=== PATIENT | female | born 2000 | race Caucasian/White ===

== ENCOUNTER 2025-03-28 00:28 | Emergency (ER) | payer SELFPAY ==
[~2025-03-28] VITALS: Ht 152.4 cm; Wt 61.0 kg
[2025-03-28 00:37] VITALS: TEMP 36.7; O2SAT 99
[2025-03-28 00:38] VITALS: O2SAT 100
[2025-03-28] MEDS ORDERED: LIDO-53 TP (02:32)
[2025-03-28] MEDS ORDERED: NAPR-1176 MT (02:32)
[2025-03-28 03:04] VITALS: BP 118/73; PULSE 86; RESP 16
[2025-03-28] MEDS: KETOROLAC 15MG/ML VIAL IM ONE (03:04)
== END 2025-03-28 03:18 | disposition home or self-care (01) ==
LOC: ER 00:28
DX: M25.571 Pain in right ankle and joints of right foot (principal); Z79.1 Long term (current) use of non-steroidal anti-inflammatories (NSAID); Z79.899 Other long term (current) drug therapy
CPT/HCPCS: 99283; 73610; 96372; J1885

== ENCOUNTER 2025-04-06 09:47 | Emergency (ER) | payer MEDICAID ==
[~2025-04-06] VITALS: Ht 154.9 cm; Wt 77.1 kg
[~2025-04-06 09:47] MED LIST: LIDO-53 TP; NAPR-1176 MT
[2025-04-06 09:55] VITALS: O2SAT 100
[2025-04-06 11:12] LABS: BASOPHILS % 0.3 % (0.0-2.0); DIFFERENTIAL COMMENT 0; EOSINOPHILS % 0.4 % (0.0-5.0); HEMATOCRIT. 33.5 % (36.0-48.0); HEMOGLOBIN. 10.6 g/dL (12.0-16.0); LYMPHOCYTES % 20.7 % (20.0-50.0); MEAN CORPUSCULAR HEMOGLOBIN 22.7 pg (28.0-32.0); MEAN CORPUSCULAR HGB CONC 31.5 g/dL (31.0-37.0); MEAN PLATELET VOLUME 7.6 fl (7.4-10.4); MONOCYTES % 6.5 % (2.0-8.0); NEUTROPHILS % 72.1 % (40.0-76.0); PLATELET 394 x1000/uL (130-400); RED BLOOD CELL COUNT 4.65 mill/uL (4.2-5.4); RED CELL DISTRIBUTION WIDTH 17.9 % (11.6-14.6); WHITE BLOOD COUNT 8.8 x1000/uL (4.5-11.0)
[2025-04-06 11:19] LABS: CHLORIDE 102 mEq/L (98-107); POTASSIUM 3.9 mEq/L (3.5-5.1); SODIUM 137 mEq/L (136-145)
[2025-04-06 11:20] LABS: CARBON DIOXIDE 25 mEq/L (21-32)
[2025-04-06 11:25] LABS: CREATININE 0.6 mg/dL (0.6-1.0); ETHANOL BLOOD < 10 mg/dL (<10); GLUCOSE 104 mg/dL (70-105); HCG SCREEN NEGATIVE; UREA NITROGEN BLOOD 12 mg/dL (9-23)
[2025-04-06] MEDS: ACETAMINOPHEN 1000MG/100ML 100 ML IV ONE (11:56)
[2025-04-06] MEDS: METOCLOPRAMIDE HCL 10MG/2ML VIAL IV ONE (11:56)
[2025-04-06] MEDS: MECLIZINE 25MG TABLET PO ONE (12:07)
[2025-04-06] MEDS: KETOROLAC 15MG/ML VIAL IV ONE (14:06)
[2025-04-06] MEDS ORDERED: ASPI1TAB8 PO (14:15)
[2025-04-06] MEDS ORDERED: TOPUD MT (14:15)
[2025-04-06 15:25] VITALS: BP 102/69; PULSE 67; RESP 12; TEMP 36.8; O2SAT 100
== END 2025-04-06 15:29 | disposition home or self-care (01) ==
LOC: ER 09:47
DX: G43.109 Migraine with aura, not intractable, without status migrainosus (principal); Z79.899 Other long term (current) drug therapy
CPT/HCPCS: 80048; 80320; 84703; 85025; 36415; 70450; 96365; 96375; 99285; J8597; J1885; J2765; Z7610; G0480; J0131